=== PATIENT | female | born 1995 | race Caucasian/White ===

== ENCOUNTER 2018-03-26 21:10 | Emergency (ER) | payer OTHER ==
[2018-03-26] MEDS ORDERED: TETANUS/DIPHTHERIA TOXOID 0.5 ML SYRINGE IM ONE (21:23)
--- NOTE | 2018-03-26 21:26 | ED Physician Documentation ---
PD HPI LOWER EXT INJURY - Stated complaint Stated Complaint: RT THIGH PUNCTURE WOUND - Chief complaint Chief Complaint: Laceration - History obtained from History obtained from: Patient - History of Present Illness PD HPI LOW EXT INJURY LOCATION: Right, Buttock, Thigh Type of injury: Fall (she fell and landed onto nail, with abrasion of thigh and buttock. Minimal bleeding. Out of date for tetanus.) Where injury occurred: [place] - onset: Today Timing - details: Abrupt onset Worsened by: Palpating Associated symptoms: No: Weakness, Numbness Similar symptoms before: Has not had sx before Recently seen: Not recently seen Review of Systems GI: denies: Abdominal Pain Musculoskeletal: denies: Neck pain, Back pain Neurologic: denies: Focal weakness, Numbness, Headache, Head injury PD PAST MEDICAL HISTORY - Past Medical History Past Medical History: No - Past Surgical History Past Surgical History: Yes Ortho: Other - Present Medications Home Medications: Ambulatory Orders Medication Instructions Recorded Confirmed No Known Home Medications [No 03/26/18 03/26/18 Known Home Medications] - Allergies Allergies/Adverse Reactions: Allergies Allergy/AdvReac Type Severity Reaction Status Date / Time No Known Drug Allergies Allergy Verified 03/26/18 21:20 - Social History Does the pt smoke?: No Smoking Status: Never smoker Does the pt drink ETOH?: Yes Does the pt have substance abuse?: No - Immunizations Immunizations are current?: No Immunizations: TDAP >10years/unknown - POLST Patient has POLST: No PD ED PE NORMAL - Vitals Vital signs reviewed: Yes - General General: Alert and oriented X 3, No acute distress, Well developed/nourished - HEENT HEENT: Atraumatic - Abdomen Abdomen: Soft, Non tender - Rectal Rectal: Deferred, Other (exam of buttock on right with abrasion more than puncture. Does not go full thickness and no FB nor active bleeding at this time. ) - Back Back: No spinal TTP Results - Vitals Vitals: Oxygen O2 Source Room air PD MEDICAL DECISION MAKING - ED course Complexity details: considered differential (abrasion, minimal puncture. No FB. ), d/w patient Departure - Departure Disposition: 01 Home, Self Care Clinical Impression: Fall from slip, trip, or stumble Qualifiers: Encounter type: initial encounter Qualified Code(s): W01.0XXA - Fall on same level from slipping, tripping and stumbling without subsequent striking against object, initial encounter Puncture wound of buttock Qualifiers: Encounter type: initial encounter Laterality: right Qualified Code(s): S31.813A - Puncture wound without foreign body of right buttock, initial encounter Condition: Stable Record reviewed to determine appropriate education?: Yes Instructions: ED Wound Puncture General Follow-Up: Julia Thayer MD [Primary Care Provider] - Comments: Your given a tetanus booster today. You should be good for 10 years generally. The wound does not appear too deep and so should heal fine. Tylenol or ibuprofen if needed for pains. You can apply local ointment to the area once or twice daily as its healing so does not get dry and hard. Recheck if signs of infection. Discharge Date/Time: 03/26/18 21:58
[2018-03-26] MEDS ORDERED: TETANUS/DIPHTHERIA/PERTUSSIS 0.5 ML SYRINGE IM ONE (21:36)
[2018-03-26 22:00] VITALS: BP 125/81
== END 2018-03-26 21:58 | disposition home or self-care (01) ==
LOC: ED 21:10
DX: S31.813A Puncture wound without foreign body of right buttock, initial encounter (principal); W19.XXXA Unspecified fall, initial encounter; Y92.830 Public park as the place of occurrence of the external cause
CPT/HCPCS: 90471; 99282; 99283